=== PATIENT | female | born 1990 | race Caucasian/White ===

== ENCOUNTER 2020-01-27 03:37 | Emergency (ER) | payer OTHER ==
[2020-01-27 04:10] VITALS: TEMP 98.3; BMI 27.1
--- NOTE | 2020-01-27 04:35 | PDOC ---
History of Present Illness - General Chief Complaint: Vaginal Bleeding Stated Complaint: VAGINAL BLEEDING/12WKS Time Seen by Provider: 01/27/20 04:33 History Source: Patient Exam Limitations: No Limitations - History of Present Illness Initial Comments: 01/27/20 06:16 A2 Is this a multiple visit Asthma Patient?: No Past History - Travel History Traveled outside of the country in the last 30 days: No Close contact w/someone who was outside of country & ill: No - Medical History Allergies/Adverse Reactions: Allergies Allergy/AdvReac Type Severity Reaction Status Date / Time No Known Allergies Allergy Verified 01/27/20 04:10 Home Medications: Ambulatory Orders Nitrofurantoin Monohyd/M-Cryst [Macrobid -] 100 mg PO BID #14 capsule 01/27/20 COPD: No - Surgical History Abdominal Surgery: Yes (UMBILICAL HERNIA) - Immunization History Immunization Up to Date: Yes - Psycho-Social/Smoking History Smoking History: Never smoked Have you smoked in the past 12 months: No Information on smoking cessation initiated: No - Substance Abuse Hx (Audit-C & DAST Scrn) How often the patient has a drink containing alcohol: Never Score: In Men: 4 or > Positive; In Women: 3 or > Positive: 0 Screen Result (Pos requires Nsg. Audit-10AR): Negative In the last yr the pt used illegal drug/Rx for NonMed reason: No Score: Yes response is considered Positive: 0 Screen Result (Positive result requires Nsg. DAST-10): Negative Review of Systems - Review of Systems Constitutional: No: Symptoms Reported, See HPI, Chills, Diaphoresis, Fever, Loss of Appetite, Malaise, Night Sweats, Weakness, Weight Stable, Unintentional Wgt. Loss, Unexplained wgt Loss, Other HEENTM: No: Symptoms Reported, See HPI, Eye Pain, Blurred Vision, Tearing, Recent change in vision, Double Vision, Cataracts, Ear Pain, Ocular Prothesis, Ear Discharge, Nose Pain, Nose Congestion, Tinnitus, Nose Bleeding, Hearing Loss, Throat Pain, Throat Swelling, Mouth Pain, Dental Problems, Difficulty Swallowing, Mouth Swelling, Other Respiratory: No: Symptoms reported, See HPI, Cough, Orthopnea, Shortness of Breath, SOB with Exertion, SOB at Rest, Stridor, Wheezing, Productive cough, Hemoptysis, Other Cardiac (ROS): No: Symptoms Reported, See HPI, Chest Pain, Edema, Irregular Heart Rate, Lightheadedness, Palpitations, Syncope, Chest Tightness, Other ABD/GI: No: Symptoms Reported, See HPI, Abdominal Distended, Abd. Pain w/ defecation, Blood Streaked Bowels, Constipated, Diarrhea, Difficulty Swallowing, Nausea, Poor Appetite, Poor Fluid Intake, Rectal Bleeding, Vomiting, Indigestion, Abdominal cramping, Tarry Stools, Other : No: Symptoms Reported, See HPI, Burning, Dysuria, Discharge, Frequency, Flank Pain, Hematuria, Incontinence, Pain, Urgency, Testicular Mass, Testicular Swelling, Lesions, Testicular Pain, Other Musculoskeletal: No: Symptoms Reported, See HPI, Back Pain, Gout, Joint Pain, Joint Swelling, Muscle Pain, Muscle Weakness, Neck Pain, Joint Stiffness, Other Integumentary: No: Symptoms Reported, See HPI, Bruising, Change in Color, Change in Hair/Nails, Dryness, Erythema, Flushing, Lesions, Lumps, Pallor, Pruritus, Rash, Sweating, Other *Physical Exam - Vital Signs Last Vital Signs Temp Pulse Resp BP Pulse Ox 98.3 F 86 18 126/85 98 01/27/20 04:05 01/27/20 04:05 01/27/20 04:05 01/27/20 04:05 01/27/20 04:05 - Physical Exam General Appearance: Yes: Nourished, Appropriately Dressed HEENT: positive: EOMI, PROMISE, Normal ENT Inspection, Normal Voice Neck: positive: Supple Respiratory/Chest: positive: Lungs Clear Cardiovascular: positive: Regular Rhythm, Regular Rate, S1, S2 Female Pelvic Exam: positive: normal external exam, vaginal bleeding (pt has watery discharge in the vag vault-- possibly amniotic fluid). negative: cervi linda os closed (os seems open; unclear exam pt has too much pain and not allowing proper exam) Gastrointestinal/Abdominal: positive: Normal Bowel Sounds, Tender (suprapubic pain), Soft ED Treatment Course - LABORATORY CBC & Chemistry Diagram: 01/27/20 04:23 01/27/20 04:23 - RADIOLOGY Radiology Studies Ordered: Category Date Time Status <14WKS US [US] Stat Ultrasound 01/27/20 04:33 Ordered Medical Decision Making - Medical Decision Making 01/27/20 04:35 lans will be sent/. Pt will get a sono when the sono dept opens in 3 hrs. Pt will have RH checked as well as beta quant. 01/27/20 06:38 Pt is A+blood Pt has normal Hb/HCT Pt will need sono to make sure fetus is ok. If open os, ACCESS SERVICE REPRESENTATIVE needs to be consulted. Pt will be signed out to the day ER docs. Discharge - Discharge Information Problems reviewed: Yes Clinical Impression/Diagnosis: Threatened Condition: Fair - Additional Discharge Information Prescriptions: Nitrofurantoin Monohyd/M-Cryst [Macrobid -] 100 mg PO BID #14 capsule - Follow up/Referral Referrals: Delia Xiong MD [Primary Care Provider] - - Patient Discharge Instructions - Post Discharge Activity
[2020-01-27 04:44] LABS: BASO % 0.6 % (0-2.0); EOS % 0.4 % (0-4.5); HEMOGLOBIN 12.8 GM/dL (10.7-15.3); LYMPH % 16.6 % (8-40); MCH 30.9 pg (25.7-33.7); MCHC 34.5 g/dl (32.0-36.0); MEAN CELL VOLUME 89.6 fl (80-96); MEAN PLT VOLUME 9.2 fl (7.5-11.1); MONO % 4.6 % (3.8-10.2); NEUT % 77.8 % (42.8-82.8); PLATELET COUNT 202 K/MM3 (134-434); RBC 4.13 M/mm3 (3.60-5.2); RDW 12.1 % (11.6-15.6); WHITE BLOOD COUNT 11.7 K/mm3 (4.0-10.0)
[2020-01-27 05:12] LABS: ALBUMIN 3.4 g/dl (3.4-5.0); BILIRUBIN,TOTAL 0.7 mg/dL (0.2-1); BLOOD UREA NITROGEN 4.2 mg/dL (7-18); CALCIUM 8.9 mg/dL (8.5-10.1); CREATININE 0.6 mg/dL (0.55-1.3); POTASSIUM 3.4 mmol/L (3.5-5.1); TOT PROT 6.8 g/dl (6.4-8.2)
[2020-01-27 05:16] LABS: EPI CELLS >36 /uL (0-25.1); HYALINE CASTS 1 /uL (0-3.1); PH,URINE 5.5 (5.0-8.0); URINE APPEARANCE CLOUDY; URINE BACTERIA 2403 /uL (0-1359); URINE BILIRUBIN NEGATIVE (NEGATIVE); URINE COLOR YELLOW; URINE GLUCOSE (UA) NEGATIVE (NEGATIVE); URINE KETONE 3+ (NEGATIVE); URINE LEUK ESTERASE NEGATIVE (NEGATIVE); URINE NITRITE NEGATIVE (NEGATIVE); URINE PROTEIN NEGATIVE (NEGATIVE); URINE RBC 15 /uL (0-23.9)
[2020-01-27] MEDS ORDERED: LACTATED RINGERS SOLUTION 1000 ML INFUS.BAG IV ONE (05:35)
[2020-01-27] MEDS ORDERED: NITROFURANTOIN MACROCRYSTAL 50 MG CAPSULE (FP) PO SCH (06:15)
[2020-01-27] MEDS ORDERED: NITROFURANTOIN MACROCRYSTAL 50 MG CAPSULE (FP) ONE (06:16)
[2020-01-27 07:04] VITALS: BP 113/64; PULSE 73
--- NOTE | 2020-01-27 07:21 | PDOC ---
*Physical Exam - Vital Signs Last Vital Signs Temp Pulse Resp BP Pulse Ox 98.3 F 73 18 113/64 100 01/27/20 04:05 01/27/20 07:03 01/27/20 07:03 01/27/20 07:03 01/27/20 07:03 <Bee Ram - Last Filed: 01/27/20 07:37> - Vital Signs Last Vital Signs Temp Pulse Resp BP Pulse Ox 98.3 F 73 18 113/64 100 01/27/20 04:05 01/27/20 07:03 01/27/20 07:03 01/27/20 07:03 01/27/20 07:03 <Vincenzo Jj - Last Filed: 01/27/20 09:56> ED Treatment Course - LABORATORY CBC & Chemistry Diagram: 01/27/20 04:23 01/27/20 04:23 - ADDITIONAL ORDERS Additional order review: Laboratory Results 01/27/20 01/27/20 01/27/20 05:04 04:23 04:23 Sodium 137 Potassium 3.4 L Chloride 106 Carbon Dioxide 23 Anion Gap 9 BUN 4.2 L Creatinine 0.6 Est GFR (CKD-EPI)AfAm 143.77 Est GFR (CKD-EPI)NonAf 124.04 Random Glucose 90 Calcium 8.9 Total Bilirubin 0.7 AST 13 L ALT 23 Alkaline Phosphatase 54 Total Protein 6.8 Albumin 3.4 Beta HCG, Quant 86809.6 Urine Color Yellow Urine Appearance Cloudy Urine pH 5.5 Ur Specific [place] 1.009 L Urine Protein Negative Urine Glucose (UA) Negative Urine Ketones 3+ H Urine Blood 3+ H Urine Nitrite Negative Urine Bilirubin Negative Urine Urobilinogen 1.0 Ur Leukocyte Esterase Negative Urine RBC (Auto) 15 Urine Casts (Auto) 1 U Epithel Cells (Auto) >36 Urine Bacteria (Auto) 2403 Blood Type A POSITIVE Antibody Screen Negative 01/27/20 04:23 RBC 4.13 MCV 89.6 MCHC 34.5 RDW 12.1 MPV 9.2 Neutrophils % 77.8 Lymphocytes % 16.6 Monocytes % 4.6 Eosinophils % 0.4 Basophils % 0.6 - Medications Given in the ED: ED Medications Discontinued Medications Generic Name Dose Route Start Last Admin Trade Name Freq PRN Reason Stop Dose Admin Lactated Ringer's 1,000 ml 01/27/20 05:35 08/03/20 06:02 Lactated Ringers Solution IV 01/27/20 05:36 1,000 ml ONCE ONE Administration <Bee Ram - Last Filed: 01/27/20 07:37> - LABORATORY CBC & Chemistry Diagram: 01/27/20 04:23 01/27/20 04:23 - ADDITIONAL ORDERS Additional order review: Laboratory Results 01/27/20 01/27/20 01/27/20 05:04 04:23 04:23 Sodium 137 Potassium 3.4 L Chloride 106 Carbon Dioxide 23 Anion Gap 9 BUN 4.2 L Creatinine 0.6 Est GFR (CKD-EPI)AfAm 143.77 Est GFR (CKD-EPI)NonAf 124.04 Random Glucose 90 Calcium 8.9 Total Bilirubin 0.7 AST 13 L ALT 23 Alkaline Phosphatase 54 Total Protein 6.8 Albumin 3.4 Beta HCG, Quant 99523.6 Urine Color Yellow Urine Appearance Cloudy Urine pH 5.5 Ur Specific [place] 1.009 L Urine Protein Negative Urine Glucose (UA) Negative Urine Ketones 3+ H Urine Blood 3+ H Urine Nitrite Negative Urine Bilirubin Negative Urine Urobilinogen 1.0 Ur Leukocyte Esterase Negative Urine RBC (Auto) 15 Urine Casts (Auto) 1 U Epithel Cells (Auto) >36 Urine Bacteria (Auto) 2403 Blood Type A POSITIVE Antibody Screen Negative 01/27/20 04:23 RBC 4.13 MCV 89.6 MCHC 34.5 RDW 12.1 MPV 9.2 Neutrophils % 77.8 Lymphocytes % 16.6 Monocytes % 4.6 Eosinophils % 0.4 Basophils % 0.6 - Medications Given in the ED: ED Medications Discontinued Medications Generic Name Dose Route Start Last Admin Trade Name Freq PRN Reason Stop Dose Admin Lactated Ringer's 1,000 ml 01/27/20 05:35 01/27/20 06:02 Lactated Ringers Solution IV 01/27/20 05:36 1,000 ml ONCE ONE Administration <Vincenzo Jj - Last Filed: 01/27/20 09:56> Medical Decision Making - Medical Decision Making agree with resident note s/o pending ltrasound likely miscarriage, labs and lytes normal. ua neg for infectoin positive rh status, no rhogam indicated vs wnl, no acute events in the ED 01/27/20 07:37 <Bee Ram - Last Filed: 01/27/20 07:37> - Medical Decision Making 01/27/20 07:16 Patient signed out to me by Dr. Gonzales. 29F @12 weeks here for vaginal bleeding, possible threatened . Has history of 2x ectopics, 1x twin , now here again for another and concern for vaginal bleeding today. Labs sent, all normal, blood type A+, no Rhogam needed. Pelvic exam performed by night attending, some light red serous discharge but did not tolerate exam, os possibly closed. Needs ultrasound for evaluation of miscarriage. 01/27/20 08:10 US signal maintenance technician reports 12w6d IUP with short cervix, patient now having contractions, consistent with inevitable . 01/27/20 09:51 Discussed with patient in [place], will f/u with OBGYN. Tylenol for pain control. <Vincenzo Jj - Last Filed: 01/27/20 09:56> Discharge <Bee Ram - Last Filed: 01/27/20 07:37> - Discharge Information Problems reviewed: Yes <Vincenzo Jj - Last Filed: 01/27/20 09:56> - Discharge Information Clinical Impression/Diagnosis: Threatened Condition: Fair - Additional Discharge Information Prescriptions: Cephalexin Monohydrate [Keflex -] 500 mg PO BID #14 capsule - Follow up/Referral Referrals: Delia Xiong MD [Primary Care Provider] - Trey Vasquez MD [Staff Physician] - Stiven Blanco MD [Staff Physician] - Daniella Boyle MD [Staff Physician] - - Patient Discharge Instructions Patient Printed Discharge Instructions: DI for Threatened Additional Instructions: Hoy fuiste evaluada por sangrado vaginal. Los resultados de bear ultrasonido muestran que tiene 12 semanas y 6 longoria de embarazo, josué desafortunadamente, existe un alto riesgo de tener un aborto espontneo pronto. Puede experimentar mucho sangrado y dolor en los prximos longoria y pasar muchos cogulos. [place] es normal. Sin embargo, debe tommy a un mdico OBGYN en los prximos longoria para recibir ms atencin. [place] [id number], y dgale a bear mdico cuando los ozzy. Se carroll enviado marion referencia para programar marion rosa, dgales que est embarazada y tiene dolor y sangrado. [place] Tylenol para el dolor y le recetaron marion receta. Si experimenta un empeoramiento del dolor, sangrado de ms de 4 almohadillas en un da o cualquier otro sntoma nuevo o preocupante, regrese a la jennifer de emergencias. Today you were evaluated for vaginal bleeding. Your ultrasound results show that you are 12 weeks and 6 days , but unfortunately, there is a high risk that you will have a miscarriage soon. You may experience a lot of bleeding and pain over the next few days, and you pass a lot of clots. This is normal. However, you need to see an OBGYN doctor in the next few days for further [place]. [place] [address], and please tell your doctor when you see them. A re ferral has been given to make an appointment, please tell them that you are and experiencing pain and bleeding. Take Tylenol for pain, and a prescription has been given. If you experience worsening pain, bleeding more than 4 pads in a day, or any other new or concerning symptoms, please return to the emergency room. Print Language: HUNGARIAN - Post Discharge Activity
[2020-01-27] MEDS ORDERED: ACETAMINOPHEN 325 MG TABLET (FP) PO ONE (08:17)
[2020-01-27] MEDS ORDERED: ACETAMINOPHEN 325 MG TABLET (FP) ONE (08:31)
== END 2020-01-27 10:00 | disposition home or self-care (01) ==
LOC: JER 03:37
DX: O20.0 Threatened abortion (principal)
CPT/HCPCS: 36415; 76801-TC; 80053; 81003; 84702; 85025; 86850; 86900; 86901; 99284-25

== ENCOUNTER 2020-11-03 17:09 | Emergency (ER) | payer OTHER ==
[2020-11-03 17:14] VITALS: BP 133/82; PULSE 71; BMI 25.8
[2020-11-03 17:15] VITALS: TEMP 98.3
[2020-11-03] MEDS ORDERED: ACETAMINOPHEN 500 MG TABLET (FP) PO ONE (18:08)
[2020-11-03] MEDS ORDERED: ACETAMINOPHEN 500 MG TABLET (FP) ONE (18:11)
== END 2020-11-03 18:12 | disposition home or self-care (01) ==
LOC: JERFT 17:09
DX: R07.9 Chest pain, unspecified (principal)
CPT/HCPCS: 71046-TC-FY; 93005; 93010; 99284-25

== ENCOUNTER 2022-01-15 17:05 | Emergency (ER) | payer OTHER ==
[2022-01-15 17:18] VITALS: BP 120/74; PULSE 71; RESP 18; TEMP 99; BMI 24.8
[2022-01-15] MEDS ORDERED: METOCLOPRAMIDE HCL 10 MG TABLET (FP) PO ONE ×2 (18:58→19:01)
[2022-01-15] MEDS ORDERED: FAMOTIDINE 20 MG TABLET PO ONE (18:58)
[2022-01-15] MEDS ORDERED: FAMOTIDINE 20 MG TABLET ONE (19:01)
[2022-01-15 20:06] LABS: BASO % 0.2 % (0-2.0); EOS % 0.3 % (0-4.5); HEMATOCRIT 38.7 % (32.4-45.2); HEMOGLOBIN 13.1 GM/dL (10.7-15.3); LYMPH % 21.6 % (8-40); MCH 30.4 pg (25.7-33.7); MCHC 33.7 g/dl (32.0-36.0); MEAN PLT VOLUME 9.3 fl (7.5-11.1); MONO % 5.2 % (3.8-10.2); NEUT % 72.7 % (42.8-82.8); PLATELET COUNT 241 10^3/uL (134-434); RDW 11.8 % (11.6-15.6); WHITE BLOOD COUNT 11.5 K/mm3 (4.0-10.0)
[2022-01-15 20:07] LABS: URINE APPEARANCE CLEAR; URINE BILIRUBIN NEGATIVE (NEGATIVE); URINE COLOR YELLOW; URINE GLUCOSE (UA) NEGATIVE (NEGATIVE); URINE KETONE 2+ (NEGATIVE); URINE LEUK ESTERASE NEGATIVE (NEGATIVE); URINE NITRITE NEGATIVE (NEGATIVE); URINE PROTEIN NEGATIVE (NEGATIVE)
[2022-01-15 20:08] LABS: HCG,QUALITATIVE URINE Positive
[2022-01-15 20:18] LABS: CALCIUM 9.1 mg/dL (8.5-10.1)
[2022-01-15 20:19] LABS: ALBUMIN 3.7 g/dl (3.4-5.0)
[2022-01-15 20:22] LABS: CREATININE 0.6 mg/dL (0.55-1.3)
[2022-01-15 20:23] LABS: BILIRUBIN,TOTAL 0.6 mg/dL (0.2-1)
[2022-01-15 20:24] LABS: TOT PROT 7.3 g/dl (6.4-8.2)
== END 2022-01-15 20:51 | disposition home or self-care (01) ==
LOC: JER 17:05 → JERFT 17:05
DX: O26.891 Other specified pregnancy related conditions, first trimester (principal); R10.9 Unspecified abdominal pain; Z3A.01 Less than 8 weeks gestation of pregnancy
CPT/HCPCS: 36415; 76705-TC; 76817-TC; 80053; 81003; 84702; 84703; 85025; 87086; 87491; 87591; 99284-25

== ENCOUNTER 2023-07-24 02:37 | Emergency (ER) | payer OTHER ==
[2023-07-24 02:46] VITALS: BMI 28.2
[2023-07-24] MEDS ORDERED: MAG HYDROX/AL HYDROX/SIMETH -MYLANTA- ORAL SUSPENSION PO ONE (04:42)
[2023-07-24] MEDS ORDERED: SUCRALFATE 1 GM TABLET (FP) PO ONE (04:42)
[2023-07-24] MEDS ORDERED: LIDOCAINE 5% TOPICAL PATCH TP ONE (04:51)
[2023-07-24] MEDS ORDERED: SUCRALFATE 1 GM TABLET (FP) ONE (05:17)
[2023-07-24] MEDS ORDERED: MAG HYDROX/AL HYDROX/SIMETH 30 ML UNIT-DOSE CUP ONE (05:17)
[2023-07-24] MEDS ORDERED: LIDOCAINE 4% PATCH TP ONE (05:18)
[2023-07-24 06:44] VITALS: BP 129/68; PULSE 89; RESP 18; TEMP 98
[2023-07-24] MEDS ORDERED: LIDOCAINE PATCH REMOVAL MC ONE (18:00)
== END 2023-07-24 07:08 | disposition home or self-care (01) ==
LOC: JER 02:37
DX: M54.50 Low back pain, unspecified (principal); R51.9 Headache, unspecified; M54.6 Pain in thoracic spine; R07.89 Other chest pain; R22.0 Localized swelling, mass and lump, head; J01.90 Acute sinusitis, unspecified; V43.62XD Car passenger injured in collision with other type car in traffic accident, subsequent encounter; Y93.I9 Activity, other involving external motion; Z20.822 Contact with and (suspected) exposure to COVID-19
CPT/HCPCS: 0241U-QW; 70450-TC; 71046-TC-FY; 93005; 93010; 99285-25

== ENCOUNTER 2023-11-23 12:58 | Emergency (ER) | payer OTHER ==
[2023-11-23 13:09] VITALS: BP 132/74; PULSE 57; RESP 17; TEMP 97.6; BMI 31.1
[2023-11-23] MEDS ORDERED: ACETAMINOPHEN INJECTION 100 ML IVPB ONE (14:02)
[2023-11-23] MEDS ORDERED: FAMOTIDINE 20 MG/50 ML IVPB 20 MG/50 ML MG IVPB ONE (14:02)
[2023-11-23] MEDS ORDERED: MAG HYDROX/AL HYDROX/SIMETH 30 ML UNIT-DOSE CUP ONE (14:02)
[2023-11-23] MEDS: ACETAMINOPHEN 1000 MG/100 ML BAG IVPB ONE (14:15)
[2023-11-23] MEDS: SODIUM CHLORIDE 0.9% 500 ML INFUS.BAG IV ONE (14:15)
[2023-11-23 14:44] LABS: BASO % 0.2 % (0-2.0); HEMATOCRIT 40.6 % (32.4-45.2); HEMOGLOBIN 13.9 GM/dL (10.7-15.3); LYMPH % 27.9 % (8-40); MCH 30.8 pg (25.7-33.7); MCHC 34.3 g/dl (32.0-36.0); MEAN CELL VOLUME 89.8 fl (80-96); MEAN PLT VOLUME 8.5 fl (7.5-11.1); MONO % 5.8 % (3.8-10.2); NEUT % 64.1 % (42.8-82.8); PLATELET COUNT 225 10^3/uL (134-434); RBC 4.52 M/mm3 (3.60-5.2); RDW 12.8 % (11.6-15.6); WHITE BLOOD COUNT 6.2 K/mm3 (4.0-10.0)
[2023-11-23 14:50] LABS: EPI CELLS 6 /uL (0-25.1); HYALINE CASTS 0 /uL (0-3.1); URINE APPEARANCE CLEAR; URINE BACTERIA 4 /uL (0-1359); URINE BILIRUBIN NEGATIVE (NEGATIVE); URINE COLOR YELLOW; URINE GLUCOSE (UA) NEGATIVE (NEGATIVE); URINE KETONE NEGATIVE (NEGATIVE); URINE LEUK ESTERASE NEGATIVE (NEGATIVE); URINE NITRITE NEGATIVE (NEGATIVE); URINE PROTEIN NEGATIVE (NEGATIVE); URINE RBC 10 /uL (0-23.9); URINE UROBILINOGEN 0.2 mg/dL (0.2-1.0); URINE WBC 6 /uL (0-25.8)
[2023-11-23] MEDS: MAG HYDROX/AL HYDROX/SIMETH 30 ML UNIT-DOSE CUP PO ONE (14:53)
[2023-11-23] MEDS: FAMOTIDINE 20 MG/50 ML IVPB 20 MG/50 ML MG IVPB ONE (14:54)
[2023-11-23 15:03] LABS: POTASSIUM 4.3 mmol/L (3.5-5.1)
[2023-11-23 15:06] LABS: ALBUMIN 3.3 g/dl (3.4-5.0); BLOOD UREA NITROGEN 8.6 mg/dL (7-18)
[2023-11-23 15:09] LABS: CREATININE 0.6 mg/dL (0.55-1.3)
[2023-11-23 15:11] LABS: BILIRUBIN,TOTAL 0.5 mg/dL (0.2-1)
== END 2023-11-23 15:51 | disposition home or self-care (01) ==
LOC: JER 12:58
PROC: 3E033GC Introduction of Other Therapeutic Substance into Peripheral Vein, Percutaneous Approach (ICD-10-PCS; principal; 2023-11-23)
PROC: 3E033NZ Introduction of Analgesics, Hypnotics, Sedatives into Peripheral Vein, Percutaneous Approach (ICD-10-PCS; 2023-11-23)
DX: R07.9 Chest pain, unspecified (principal); R51.9 Headache, unspecified; R52 Pain, unspecified; R09.89 Other specified symptoms and signs involving the circulatory and respiratory systems; M25.569 Pain in unspecified knee; Z20.822 Contact with and (suspected) exposure to COVID-19
CPT/HCPCS: 0241U-QW; 36415; 71046-TC-FY; 80053; 81003; 83690; 84484; 84703; 85025; 86618; 87086; 93005; 93010; 99285-25; J0131

== ENCOUNTER 2024-01-29 19:57 | Emergency (ER) | payer OTHER ==
[2024-01-29 20:09] VITALS: BP 127/79; PULSE 75; RESP 18; TEMP 98.3; BMI 29.0
[2024-01-29 22:08] LABS: EPI CELLS 16 /uL (0-25.1); HYALINE CASTS 1 /uL (0-3.1); PH,URINE 7.5 (5.0-8.0); URINE APPEARANCE CLOUDY; URINE BILIRUBIN NEGATIVE (NEGATIVE); URINE COLOR YELLOW; URINE GLUCOSE (UA) NEGATIVE (NEGATIVE); URINE KETONE NEGATIVE (NEGATIVE); URINE LEUK ESTERASE 3+ (NEGATIVE); URINE NITRITE POSITIVE (NEGATIVE); URINE PROTEIN TRACE (NEGATIVE); URINE RBC 100 /uL (0-23.9); URINE UROBILINOGEN 0.2 mg/dL (0.2-1.0); URINE WBC 3598 /uL (0-25.8)
[2024-01-29 22:11] LABS: HCG,QUALITATIVE URINE Negative
[2024-01-29] MEDS ORDERED: CEPHALEXIN MONOHYDRATE 500 MG CAPSULE (UD) ONE (22:15)
[2024-01-29] MEDS ORDERED: ACETAMINOPHEN 500 MG TABLET (FP) ONE (22:15)
[2024-01-29] MEDS: CEPHALEXIN MONOHYDRATE 500 MG CAPSULE (UD) PO ONE (22:16)
[2024-01-29] MEDS: ACETAMINOPHEN 500 MG TABLET (FP) PO ONE (22:16)
== END 2024-01-29 22:40 | disposition home or self-care (01) ==
LOC: JER 19:57
DX: S40.021A Contusion of right upper arm, initial encounter (principal); S40.022A Contusion of left upper arm, initial encounter; R10.31 Right lower quadrant pain; R35.0 Frequency of micturition; N30.90 Cystitis, unspecified without hematuria; W18.39XA Other fall on same level, initial encounter
CPT/HCPCS: 81003; 84703; 87086; 87186; 99283-25